=== PATIENT | male | born 1985 | race Two or more races ===

== ENCOUNTER 2022-07-09 23:35 | Emergency (ER) | payer BC, MEDICAID ==
[~2022-07-09] VITALS: Ht 175.3 cm; Wt 86.4 kg
[2022-07-10] MEDS ORDERED: KETOROLAC TROMETH 60MG/2ML VIAL IM ONE (01:30)
[2022-07-10 02:15] VITALS: BP 151/97
== END 2022-07-10 02:16 | disposition home or self-care (01) ==
LOC: ER 23:35 → EDBD 23:35 → ER 07-10 02:16
DX: M54.2 Cervicalgia (principal); M79.642 Pain in left hand; M25.512 Pain in left shoulder; M79.18 Myalgia, other site; V43.52XA Car driver injured in collision with other type car in traffic accident, initial encounter; Y93.89 Activity, other specified; Y92.488 Other paved roadways as the place of occurrence of the external cause; Y99.8 Other external cause status
CPT/HCPCS: 71045; 72040; 73000; 73030; 73060; 73080; 73090; 73110; 73130; 99284; J1885